=== PATIENT | female | born 1990 | race Native Hawaiian/Other Pacific Islander ===

== ENCOUNTER 2018-05-17 16:39 | Observation (INO) | payer OTHER ==
[~2018-05-17] VITALS: Ht 157.5 cm; Wt 56.0 kg
[2018-05-17 16:45] VITALS: BP 106/65; TEMP 99.7
[2018-05-17] MEDS ORDERED: CLON1TAB18 PO (17:10)
[2018-05-17] MEDS ORDERED: CODEINE/APAP1 TA2 PO (17:12)
[2018-05-17] MEDS ORDERED: ONDA4TAB3 PO (17:12)
[2018-05-17] MEDS ORDERED: QUET100T2 PO (17:15)
[2018-05-17] MEDS ORDERED: ADDERALL XR30 MG PO (17:16)
[2018-05-17] MEDS ORDERED: CODEINE/APAP1 TA1 PO (17:17)
[2018-05-17 18:45] LABS: PLATELET COUNT 421 K/uL (152-353)
[2018-05-17 22:37] VITALS: BP 100/72; TEMP 98.4; Ht 157.5 cm; Wt 56.0 kg
[2018-05-17 22:39] LABS: POTASSIUM 3.7 mmol/L (3.6-5.2)
[2018-05-18] VITALS (7 sets, daily range): BP systolic 82–102; BP diastolic 37–57; TEMP 97.9–98.5
[2018-05-18 05:09] LABS: PLATELET COUNT 333 K/uL (152-353)
[2018-05-18 05:19] LABS: POTASSIUM 3.7 mmol/L (3.6-5.2)
--- NOTE | 2018-05-18 19:41 | NUR ---
RED, SWOLLEN AREA NOTED TO LEFT HAND 5TH FINGER. PT STATES FEELS BETTER THAN YESTERDAY. SWOLLEN AREA TO RIGHT FOREARM NOTED, TENDER TO TOUCH WITH NO REDNESS NOTED. WILL CONTINUE TO MONITOR.
[2018-05-19 05:18] VITALS: BP 108/60; TEMP 97.9
[2018-05-19 05:46] LABS: PLATELET COUNT 309 K/uL (152-353)
[2018-05-19 06:06] LABS: POTASSIUM 3.9 mmol/L (3.6-5.2)
[2018-05-19 07:23] VITALS: BP 91/50; TEMP 98.1
[2018-05-19] MEDS ORDERED: FLUC150T PO (10:06)
[2018-05-19] MEDS ORDERED: CEPH500C20 PO (10:06)
--- NOTE | 2018-05-19 11:35 | NUR ---
PT DC WITH EDUCATION GIVEN BOTH VERBAL AND WRITTEN. PT VERBALIZED UNDERSTANDING. IV DC WITH CANNULA TIP INTACT. PT TOLERATED WELL. NAD NOTED
== END 2018-05-19 11:50 | disposition home or self-care (01) ==
LOC: ED 16:39 → MED/SURG 18:10
PROVIDERS: ADMIT Family Medicine
DX: L03.022 Acute lymphangitis of left finger (principal); L03.012 Cellulitis of left finger
CPT/HCPCS: 36415; 80048; 80053; 80202; 85027; 85651; 87040; 96365; 99220; 99284; G0378; J1200; J1885; J3370